=== PATIENT | female | born 1955 | race Caucasian/White ===

== ENCOUNTER 2018-06-04 01:20 | Inpatient (IN) | payer OTHER ==
[~2018-06-04] VITALS: Ht 172.7 cm; Wt 88.9 kg
[2018-06-04] MEDS ORDERED: IV NS 0.9% 1,000 ML BAG IV ONE (01:30)
[2018-06-04 02:10] LABS: BASOPHILS # (AUTO) 0.1 /CMM (0.0-0.2); BASOPHILS % (AUTO) 0.9 % (0.0-2.0); EOSINOPHILS % (AUTO) 4.2 % (0.0-6.0); HEMATOCRIT 42 % (33-45); HEMOGLOBIN 14.3 g/dL (11.5-14.8); LYMPHOCYTES # (AUTO) 2.3 /CMM (0.8-4.8); LYMPHOCYTES % (AUTO) 32.5 % (20.0-44.0); MEAN CORPUSCULAR HEMOGLOBIN 31 PG (26.0-33.0); MEAN CORPUSCULAR HGB CONC 34 g/dl (31.0-36.0); MEAN CORPUSCULAR VOLUME 92 fL (82-100); MONOCYTES # (AUTO) 0.4 /CMM (0.1-1.30); MONOCYTES % (AUTO) 5.2 % (2.0-12.0); NEUTROPHILS # (AUTO) 4.1 /CMM (1.8-8.9); NEUTROPHILS % (AUTO) 57.2 % (43.0-81.0); PLATELET COUNT (AUTO) 163 /CMM (150-450); RDW COEFFICIENT OF VARIATION 13.4 (11.5-15.0); RED BLOOD CELL COUNT(AUTO) 4.59 MIL/uL (4.0-5.2); WHITE BLOOD COUNT (AUTO) 7.1 K/uL (4.3-11.0)
[2018-06-04 02:19] LABS: CARBON DIOXIDE 27 mmol/L (21-32); CHLORIDE 102 mmol/L (98-107); CREATININE 0.8 mg/dL (0.6-1.3); GLUCOSE 119 mg/dL (74-106); POTASSIUM 3.9 mmol/L (3.5-5.1); SODIUM SERUM 139 mmol/L (136-145); UREA NITROGEN, BLOOD 17 mg/dL (7-18)
[2018-06-04 02:28] LABS: INR 0.97 (0.87-1.13)
[2018-06-04 02:30] LABS: ALANINE AMINOTRANSFERASE 57 U/L (12-78); ALBUMIN 3.8 g/dL (3.4-5.0); ALKALINE PHOSPHATASE 95 U/L (46-116); ASPARTATE AMINOTRANSFERASE 52 U/L (15-37); BILIRUBIN,DIRECT 0.1 mg/dL (0.0-0.2); BILIRUBIN,TOTAL 0.8 mg/dL (0.2-1.0); SALICYLATE 2.4 mg/dL (2.8-20.0); TOTAL PROTEIN, SERUM 7.5 g/dL (6.4-8.2); TROPONIN I < 0.017 ng/mL (0.00-0.056)
[2018-06-04 02:31] LABS: ACETAMINOPHEN 0 ug/ml (10-30); ALCOHOL, BLOOD < 3 mg/dL (0-0)
[2018-06-04 05:21] VITALS: BP 95/72
--- NOTE | 2018-06-04 05:30 | NUR ---
TELE/ADMISSION RN NOTES: ADMITTED VIA GURNEY W/ NURSE ROB. ALERT TO NAME ONLY. NO S/S OF RESPIRATORY DISTRESS. RA SAT 96%. ON TELE MONITOR W/ SR 74. PT. IS INCONTINENT OF B/B. PT. W/ HOME MEDS BOTTLES GIVEN TO PHARMACY. PT. KEPT ON ASKING " WHERE IS MY MOM? WHY IS SHE NOT HERE?". BEDS LOCKED AND IN LOW POSITION. IV ON RIGHT WRIST G # 20 PATENT AND INTACT W/ NS @ 100 CC/HR. CALL LIGHT W/ REACH. ALL NEEDS MEET. WILL CONTINUE TO MONITOR.
[2018-06-04] MEDS ORDERED: METO-295 PO (05:40)
[2018-06-04] MEDS ORDERED: OMEP40CA37 PO (05:40)
[2018-06-04] MEDS ORDERED: NAPR-1009 PO (05:40)
[2018-06-04] MEDS ORDERED: PROC5TAB59 PO (05:40)
[2018-06-04] MEDS ORDERED: CIPR500T5 PO (05:40)
[2018-06-04] MEDS ORDERED: ZOLP5TAB8 PO (05:40)
[2018-06-04] MEDS ORDERED: HYOS0.1273 PO (05:40)
[2018-06-04] MEDS ORDERED: DICY10CA13 PO (05:40)
[2018-06-04] MEDS: IV NS 0.9% 1,000 ML IV PRN ×2 (06:54→18:06)
[2018-06-04] MEDS ORDERED: ONDANSETRON HCL/PF 4 MG/2 ML VIAL IVP PRN (07:00)
--- NOTE | 2018-06-04 07:37 | NUR ---
AUTOCAD NOTES: RECEIVED PT ON BED ASLEEP, AROUSABLE TO NAME AND TACTILE STIMULI. NO ACUTE DISTRESS NOTED. DENIES PAIN AT THIS TIME. BREATHING EVEN AND UNLABORED WITH NORMAL RESPIRATIONS. ON TELE MONITOR, SINUS AIDEN HR 58BPM. IV ON RIGHT WRIST G20 INTACT AND PATENT WITH IVF NS RUNNING AT 100ML/HR, INFUSING WELL. KEPT CLEAN, DRY AND COMFORTABLE. CALL LIGHT PLACED WITHIN REACH. SAFETY AND FALL PRECAUTIONS OBSERVED AND MAINTAINED. WILL CONTINUE TO MONITOR PT.
[2018-06-04 08:00] VITALS: BP 128/75
[2018-06-04] MEDS: PANTOPRAZOLE 40 MG VIAL IV SCH (08:17)
--- NOTE | 2018-06-04 10:01 | NUR ---
GROUNDSKEEPER NOTES: PATIENT HAD AN EPISODE OF AGITATION, CONFUSION AND RESTLESSNESS, TRYING TO PULL OUT IV LINE AND TRYING TO GET OUT OF BED. REORIENT PT. SIDE RAILS UP X4. BED ALARM ON. BED LOCKED AND IN LOWEST POSITION. WILL CONTINUE TO MONITOR PT.
[2018-06-04 12:00] VITALS: BP 143/76
[2018-06-04] MEDS ORDERED: HALOPERIDOL LACTATE INJ 5 MG/ML VIAL IM ONE (12:30)
[2018-06-04] MEDS: LORAZEPAM INJ 2 MG/ML VIAL IV PRN (12:52)
[2018-06-04 14:00] VITALS: BP 133/56
--- NOTE | 2018-06-04 14:46 | NUR ---
STUDENT ACCOUNTS COORDINATOR NOTES: PATIENT WAS CONFUSED AND AGITATED. PULLED OUT IV 2X, TRIED TO TAKE OFF SOFT WRIST RESTRAINTS AND KEPT ON SCREAMING. NAOMI LEMA, PHOTOGRAPHIC PLATEMAKER AWARE, ORDERED HALDOL 5MG IM X1. PT ON SINUS RHYTHM. HALDOL MED GIVEN. WILL CONTINUE TO MONITOR PT.
[2018-06-04 16:00] VITALS: BP 133/56
[2018-06-04] MEDS: HALOPERIDOL 5 MG TABLET PO SCH (18:18)
[2018-06-04] MEDS: BENZTROPINE MESYLATE (1 MG) 1 MG TABLET PO SCH (18:19)
--- NOTE | 2018-06-04 18:54 | NUR ---
PRIMARY OPERATOR NOTES: PATIENT WAS SEEN BY DR. HANCOCK, NEW ORDER FOR HALDOL 5MG TID AND COGENTIN 1MG TID. PATIENT STILL CONFUSED AND AGITATED. STILL ON SOFT WRIST RESTRAINTS. COLLAZO CATH INSERTED ORDERED AND DRAINED 200CC OF URINE OUTPUT. ON TELE MONITOR SINUS RHYTHM HR 98BPM. SIDE RAILS UP. BED ALARM ON. BED LOCKED AND IN LOWEST POSITION. WILL ENDORSE TO TELEPHONE STATION REPAIRER FOR TAYLA.
[2018-06-04 20:00] VITALS: BP 148/51
[2018-06-05] VITALS: BP 135/78
[2018-06-05 02:13] LABS: APPEARANCE,URINE TURBID (CLEAR); BILIRUBIN,URINE NEGATIVE (NEGATIVE); BLOOD, URINE 1+ Ery/uL (NEGATIVE); COLOR,URINE YELLOW (YELLOW); KETONES,URINE 1+ (NEGATIVE); LEUKOCYTE ESTERASE ,URINE NEGATIVE (NEGATIVE); NITRITE, URINE NEGATIVE (NEGATIVE); PH,URINE 5.5 (5.0-8.0); PROTEIN,URINE NEGATIVE (NEGATIVE); UGLUCOSE NEGATIVE (NEGATIVE); UROBILINOGEN,URINE 0.2 EU/dL (0.2)
[2018-06-05 02:26] LABS: BACTERIA,URINE None seen /HPF (None Seen); SQUAMOUS EPITHELIAL CELL,UR Few /HPF (None Seen); URIC ACID CRYSTALS,URINE Rare /HPF (None Seen); URINE AMORPHOUS URATE Moderate /HPF (None Seen); WBC,URINE 0-2 /HPF (0-3)
[2018-06-05 04:00] VITALS: BP 147/79
[2018-06-05] MEDS: IV NS 0.9% 1,000 ML IV PRN (05:32)
[2018-06-05] MEDS: LORAZEPAM INJ 2 MG/ML VIAL IV PRN ×3 (05:46→20:12)
[2018-06-05 06:34] LABS: BASOPHILS % (AUTO) 0.5 % (0.0-2.0); EOSINOPHILS % (AUTO) 2.6 % (0.0-6.0); HEMATOCRIT 38 % (33-45); HEMOGLOBIN 12.7 g/dL (11.5-14.8); LYMPHOCYTES # (AUTO) 2.4 /CMM (0.8-4.8); LYMPHOCYTES % (AUTO) 36.1 % (20.0-44.0); MEAN CORPUSCULAR HEMOGLOBIN 31 PG (26.0-33.0); MEAN CORPUSCULAR HGB CONC 34 g/dl (31.0-36.0); MEAN CORPUSCULAR VOLUME 92 fL (82-100); MONOCYTES # (AUTO) 0.5 /CMM (0.1-1.30); MONOCYTES % (AUTO) 6.9 % (2.0-12.0); NEUTROPHILS # (AUTO) 3.6 /CMM (1.8-8.9); NEUTROPHILS % (AUTO) 53.9 % (43.0-81.0); PLATELET COUNT (AUTO) 151 /CMM (150-450); RDW COEFFICIENT OF VARIATION 13.6 (11.5-15.0); RED BLOOD CELL COUNT(AUTO) 4.09 MIL/uL (4.0-5.2); WHITE BLOOD COUNT (AUTO) 6.8 K/uL (4.3-11.0)
[2018-06-05 06:52] LABS: THYROID STIMULATING HORMONE 0.953 uIU/mL (0.358-3.74)
[2018-06-05 06:54] LABS: CALCIUM, SERUM 8.4 mg/dL (8.5-10.1); CREATININE 0.6 mg/dL (0.6-1.3); MAGNESIUM 2.2 mg/dL (1.8-2.4); POTASSIUM 3.3 mmol/L (3.5-5.1)
--- NOTE | 2018-06-05 07:15 | NUR ---
SIGN CARPENTER INITIAL NOTES RECEIVED REPORT AND PT FROM PM NURSER, PT A&O X2-3 VERY AGITATED, STATES NEEDS SOME MEDICATION TO RELAX, ON RA SAT ABOVE 97% NO SOB OR ACUTE DISTRESS AT THIS TIME, ON TELE SR HR 85, COLLAZO CATH DRAINING URINE VIA GRAVITY, PT DOES NOT HAVE DENTURES AT BEDSIDE CALLED FRIEND TO BRING DENTURES, RT FA 20 G IV INTACT AND PATENT NO INFILTRATION NOTED, ALL SAFETY MEASURES INITIATED, ALL NEEDS MET, WILL CONTINUE TO MONITOR.
[2018-06-05 08:00] VITALS: BP 157/82
[2018-06-05] MEDS: BENZTROPINE MESYLATE (1 MG) 1 MG TABLET PO SCH ×3 (08:53→16:25)
[2018-06-05] MEDS: PANTOPRAZOLE 40 MG VIAL IV SCH (08:53)
[2018-06-05] MEDS: HALOPERIDOL 5 MG TABLET PO SCH ×3 (08:53→16:25)
[2018-06-05] MEDS ORDERED: POTASSIUM CHLORIDE 20 MEQ TAB.PRT.SR PO ONE (10:00)
[2018-06-05 12:00] VITALS: BP 145/79
[2018-06-05 16:00] VITALS: BP 135/83
--- NOTE | 2018-06-05 18:32 | NUR ---
PUBLIC INFORMATION COORDINATOR ENDING NOTES PT STABLE WITH NO ACUTE CHANGES NOTED, ALL DUE MEDS GIVEN, ALL NEEDS MET, PT IS NOT ON ANY ACUTE RESTRAINTS TODAY PT DID NOT PULL OUT IV LINE AND WAS VERY COOPERATIVE, WILL CONTINUE TO MONITOR IF NO NEED FOR RESTRAINTS WILL LET MD KNOW AND DC ORDER, WILL ENDORSE TO PM NURSE.
--- NOTE | 2018-06-05 19:30 | NUR ---
TELE/RN OPENING NOTES PT RECEIVED AWAKE, HOB ELEVATED. A/OX2, FORGETFUL. ON ROOM AIR, BREATHING EVEN AND UNLABORED. DENIES SOB OR PAIN AT THIS TIME. IV TO RIGHT HAND INFILTRATED. WILL INSERT NEW IV. COLLAZO IN PLACE AND DRAINING TO GRAVITY. BED IN LOW/LOCKED POSITION WITH CALL LIGHT IN REACH. SIDE RAILS UPX3. BED ALARM ON. WILL CONTINUE TO MONITOR
[2018-06-05 20:00] VITALS: BP 139/72
--- NOTE | 2018-06-05 20:09 | NUR ---
TELE/RN NOTES NEW IV INSERTED TO LEFT HAND #22
--- NOTE | 2018-06-05 21:18 | NUR ---
TELE/RN NOTES DR. MARIE AT BEDSIDE FOR ASSESSMENT
[2018-06-05] MEDS ORDERED: MIRTAZAPINE 15 MG TABLET PO SCH (22:00)
[2018-06-06] VITALS: BP 148/84
[2018-06-06] MEDS ORDERED: TEMAZEPAM 15 MG CAPSULE PO PRN (00:30)
--- NOTE | 2018-06-06 00:42 | NUR ---
TELE/RN NOTES NAOMI ON UNIT. PT REQUESTING SLEEPING PILL. WITH ORDERS FOR 3MG RESTORIL HS PRN. ORDERS NOTED AND CARRIED OUT.
[2018-06-06 04:01] VITALS: BP 155/70
--- NOTE | 2018-06-06 05:12 | NUR ---
INFORMATION SENT:JOSI , IT ORDER , H&P , DC PLANNING , UR 06/04 TO :[phone]
[2018-06-06] MEDS: IV NS 0.9% 1,000 ML IV PRN (06:00)
--- NOTE | 2018-06-06 06:46 | NUR ---
TELE/RN CLOSING NOTES PT ASLEEP, AROUSABLE TO NAME. A/OX2 FORGETFUL AND IMPULSIVE AT TIMES DURING SHIFT. REDIRECTABLE. ON ROOM AIR, BREATHING EVEN AND UNLABORED. NO S/S OF SOB OR PAIN AT THIS TIME. ON TELE MONITOR SHOWING SR 60'S. COLLAZO IN PLACE AND DRAINING TO GRAVITY. PT WITH X2 EPISODES OF DIARRHEA, UNABLE TO COLLECT, PT UNABLE TO NOTIFY ME SOON ENOUGH AND ABSORBED IN CHUX. IV TO LEFT HAND REMAINS PATENT AND INTACT. PT OFF BILATERAL SOFT WRIST RESTRAINTS THROUGHOUT SHIFT. NO SIGNIFICANT CHANGES OVERNIGHT. BED REMAINS IN LOW/LOCKED POSITION WITH CALL LIGHT IN REACH. SIDE RAILS UPX3 WITH BED ALARM ON FOR SAFETY. WILL ENDORSE TO DAY SHIFT RN TAYLA.
--- NOTE | 2018-06-06 07:30 | NUR ---
iNITIAL NOTES: PT ASLEEP, AROUSABLE TO NAME. A/OX2 DOCUMENT CONTROL ASSISTANT REPORTED THAT PT IS FORGETFUL AND IMPULSIVE AT TIMES. HOWEVER, PT WAS REDIRECTABLE. ON ROOM AIR, BREATHING EVEN AND UNLABORED. NO S/S OF SOB OR PAIN AT THIS TIME. ON TELE MONITOR SHOWING SR 60'S. COLLAZO IN PLACE AND DRAINING TO GRAVITY. IV TO LEFT HAND REMAINS PATENT AND INTACT. PT OFF BILATERAL SOFT WRIST RESTRAINTS BED REMAINS IN LOW/LOCKED POSITION WITH CALL LIGHT IN REACH. SIDE RAILS UPX3 WITH BED ALARM ON FOR SAFETY. WILL CONTINUE TO MONITOR.
[2018-06-06 08:00] VITALS: BP 128/78
[2018-06-06 08:06] LABS: CALCIUM, SERUM 8.3 mg/dL (8.5-10.1); CREATININE 0.7 mg/dL (0.6-1.3); POTASSIUM 3.4 mmol/L (3.5-5.1)
[2018-06-06] MEDS: PANTOPRAZOLE 40 MG VIAL IV SCH (09:28)
[2018-06-06] MEDS: BENZTROPINE MESYLATE (1 MG) 1 MG TABLET PO SCH ×2 (09:28→12:09)
[2018-06-06] MEDS: HALOPERIDOL 5 MG TABLET PO SCH ×2 (09:30→12:09)
[2018-06-06] MEDS ORDERED: POTASSIUM CHLORIDE 20 MEQ TAB.PRT.SR PO ONE (10:00)
[2018-06-06 12:00] VITALS: BP 130/75
== END 2018-06-06 15:04 | disposition home or self-care (01) | DRG 812 ==
LOC: ER 01:23 → TELE1 04:29
DX: T50.901A Poisoning by unspecified drugs, medicaments and biological substances, accidental (unintentional), initial encounter (principal); G92 Toxic encephalopathy; F29 Unspecified psychosis not due to a substance or known physiological condition; F25.9 Schizoaffective disorder, unspecified; K21.9 Gastro-esophageal reflux disease without esophagitis; K58.9 Irritable bowel syndrome, unspecified; Z79.899 Other long term (current) drug therapy; Y92.009 Unspecified place in unspecified non-institutional (private) residence as the place of occurrence of the external cause; F41.9 Anxiety disorder, unspecified; Z91.5 Personal history of self-harm; Z81.8 Family history of other mental and behavioral disorders; F13.20 Sedative, hypnotic or anxiolytic dependence, uncomplicated; E87.6 Hypokalemia
CPT/HCPCS: 36415; 70450-TC; 71045-TC; 80048-TC; 80061-TC; 80076-TC; 80305; 81000-TC; 82962-TC; 83735-TC; 84100-TC; 84443-TC; 84484-TC; 85025-TC; 85730-TC; 87081-TC; A4606; C9113; G0480; J1630; J2060; J7030; Z7610